=== PATIENT | female | born 1975 ===

== ENCOUNTER 2018-01-10 19:42 | Emergency (ER) | payer MEDICAID ==
[~2018-01-10] VITALS: Ht 167.6 cm; Wt 68.9 kg
--- NOTE | 2018-01-10 20:43 | NUR ---
Patient discharged to home in stable conditon. Written and verbal after care instructions given. Patient verbalizes understanding of instructions. Patient reported reduced anxiety related to illness. Patient able to ambulate unassisted with steady gait. Patient left with all personal belongings.
[2018-01-10 20:44] VITALS: BP 139/88
== END 2018-01-10 20:44 | disposition home or self-care (01) ==
LOC: ER 19:44
DX: B34.9 Viral infection, unspecified (principal); I10 Essential (primary) hypertension
CPT/HCPCS: A4663